=== PATIENT | female | born 1985 | race Caucasian/White ===

== ENCOUNTER 2023-12-03 16:02 | Emergency (ER) | payer BC, SELFPAY ==
[2023-12-03 16:07] VITALS: BP 144/87
--- NOTE | 2023-12-03 16:14 | ED.PDOC.TR ---
ED Provider Triage
-
Patient seen by provider in Triage?: Seen in Triage
Pt was assessed in triage as a rapid assessment to expedite ongoing care with expectation of further assessment.
38-year-old female presenting to the emergency department today with concerns of bodyaches malaise joint aches palpitations headache throughout the day today. There is a rash over the past few days her primary care doctor started on doxycycline for
likely Lyme disease. Developed these worsening symptoms today. Febrile here. Plan to get labs EKG due to the patient's symptoms for further assessment
[2023-12-03 16:29] LABS: % Basophils 0.4 % (0-2); % Eosinophils 0.3 % (0-6); % Immature Granulocytes 0.3 % (0-0.5); % Lymphocytes 10.8 % (20.5-51.1); % Monocytes 4.3 % (1.7-9.3); % Neutrophils 83.9 % (42.2-75.2); Absolute Lymphocytes 0.7 10^3/uL (1.2-3.4); Absolute Monocytes 0.3 10^3/uL (0.1-0.6); Absolute Neutrophils 5.6 10^3/uL (1.4-6.5); Hematocrit 42.7 % (37.0-47.0); Hemoglobin 14.4 g/dL (12.0-16.0); Mean Corp Hgb Conc. 33.7 g/dL (33.0-37.0); Mean Corpuscular Volume 86.1 fL (81.0-99.0); Mean Platelet Volume 9.2 fL (7.4-10.4); Nucleated Red Blood Cells % 0 %; Platelet Count 293 10^3/uL (130-400); Red Blood Cell Count 4.96 10^6/uL (4.20-5.40); Red Cell Dist. Width 11.4 % (11.5-14.5); White Blood Cell Count 6.7 10^3/uL (4.8-10.8)
[2023-12-03 16:41] LABS: HCG, Serum Qualitative Screen Negative
[2023-12-03 16:46] LABS: ALT (SGPT) 120 U/L (0-35); AST (SGOT) 183 U/L (14-36); Alkaline Phosphatase 106 U/L (38-126); Blood Urea Nitrogen 13 mg/dl (7-17); Calcium 10.1 mg/dl (8.4-10.2); Carbon Dioxide 25 mmol/L (22-30); Chloride 97 mmol/L (98-107); Glucose 121 mg/dl (70-99); Potassium 3.8 mmol/L (3.5-5.1); Sodium 136 mmol/L (135-145); Total Bilirubin 0.7 mg/dl (0.2-1.3); Total Protein 8.3 g/dl (6.3-8.2); eGFR > 60.00
[2023-12-03 16:53] LABS: Troponin I 0.014 ng/ml
== END 2023-12-03 18:22 | disposition left against medical advice (07) ==
LOC: EMR 16:02
PROVIDERS: EMERGENCY PHYSICIAN Physician Assistant; FAMILY PHYSICIAN Physician Assistant
DX: R00.2 Palpitations (principal); A69.20 Lyme disease, unspecified
CPT/HCPCS: 80053; 84484; 84703; 85025; 93005